=== PATIENT | female | born 1995 | race Caucasian/White ===

== ENCOUNTER 2021-12-02 15:59 | Emergency (ER) | payer OTHER ==
[2021-12-02 16:40] LABS: BILIRUBIN NEGATIVE (NEGATIVE); BLOOD NEGATIVE Ery/uL (NEGATIVE); CLARITY CLEAR (CLEAR); COLOR YELLOW (YELLOW); GLUCOSE (U) NORMAL (NORMAL); LEUKOCYTES NEGATIVE Leu/uL (NEGATIVE); NITRITE NEGATIVE (NEGATIVE); PROTEIN NEGATIVE (NEGATIVE); SPECIFIC GRAVITY 1.015 (1.001-1.030); UROBILINOGEN 0.2 mg/dL (0.2-1.0)
[2021-12-02 16:43] LABS: BASOPHIL 0.2 % (0-2); EOSINOPHIL 0.9 % (0-5); HCT 37.8 % (37.0-47.0); HGB 12.7 g/dl (12.5-16.0); LYMPHOCYTE 19.5 % (15-48); MCH 28.9 pg (25.0-31.0); MCHC 33.6 g/dL (32.0-36.0); MCV 86.1 fL (78.0-100.0); MONOCYTE 6.6 % (0-12); MPV 10.1 fL (6.0-9.5); NEUTROPHIL 72.5 % (41-80); NRBC 0; PLT 260 K/uL (150-400); RBC 4.39 M/uL (4.20-5.40); RDW 14.3 % (11.5-14.0); WBC 11.4 K/uL (4.0-10.5)
[2021-12-02 17:01] LABS: ALBUMIN 3.3 g/dL (3.4-5.0); BILIRUBIN - TOTAL 0.3 mg/dL (0.2-1.0); BUN/CREAT RATIO (CALC) 8.1 RATIO; CREATININE 0.62 mg/dL (0.51-0.95); GLOBULIN (CALCULATION) 4.1 g/dL; POTASSIUM 3.4 mmol/L (3.5-5.1); TOTAL PROTEIN 7.4 g/dL (6.4-8.2)
== END 2021-12-02 18:00 | disposition home or self-care (01) ==
LOC: FER 15:59
PROVIDERS: Internal Medicine
DX: O20.0 Threatened abortion (principal); Z3A.13 13 weeks gestation of pregnancy
CPT/HCPCS: 36415; 76805; 80053; 81003; 84702; 85025; 86900; 86901; 99284